=== PATIENT | male | born 1965 | race Caucasian/White ===

== ENCOUNTER 2017-08-25 00:59 | Emergency (ER) | payer SELFPAY ==
[~2017-08-25] VITALS: Ht 188 cm; Wt 91.7 kg
[2017-08-25 01:05] VITALS: BP 143/83
[2017-08-25] MEDS ORDERED: LISI-167 PO (01:14)
[2017-08-25] MEDS ORDERED: PROPARACAINE OPHTH 0.5%, 15ML ONE (01:18)
[2017-08-25] MEDS ORDERED: FLUORESCEIN OPHTHALMIC 1 MG STRIP ONE (01:18)
[2017-08-25] MEDS ORDERED: FLUORESCEIN OPHTHALMIC 1 MG STRIP EACHEYE ONE (02:00)
[2017-08-25] MEDS ORDERED: PROPARACAINE OPHTH 0.5%, 15ML EACHEYE ONE (02:00)
== END 2017-08-25 02:04 | disposition home or self-care (01) ==
LOC: ED 01:45
DX: T15.02XA Foreign body in cornea, left eye, initial encounter (principal); W31.1XXA Contact with metalworking machines, initial encounter; Y93.89 Activity, other specified; Y92.89 Other specified places as the place of occurrence of the external cause; Y99.8 Other external cause status
CPT/HCPCS: 65222; 99283

== ENCOUNTER 2020-08-05 11:44 | Emergency (ER) | payer OTHER ==
[~2020-08-05] VITALS: Ht 188 cm; Wt 90.7 kg
[~2020-08-05 11:44] MED LIST: LISI-167 PO
[2020-08-05 11:47] VITALS: BP 140/97
[2020-08-05] MEDS ORDERED: LIDOCAINE-MPF 1%, 5ML INFIL ONE (12:00)
[2020-08-05] MEDS ORDERED: LIDOCAINE-MPF 1%, 5ML ONE (12:18)
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
--- NOTE | 2020-08-05 12:47 | NUR ---
REPORT GIVEN TO LUISA DREW.
--- NOTE | 2020-08-05 12:54 | NUR ---
PROVIDER AT BEDSIDE FOR SUTURES.
[2020-08-05] MEDS ORDERED: NEOSPORIN OINT. PKT 1 PACKET ONE (12:57)
== END 2020-08-05 13:39 | disposition home or self-care (01) ==
LOC: ED 13:33
DX: S61.211A Laceration without foreign body of left index finger without damage to nail, initial encounter (principal); I10 Essential (primary) hypertension; E78.00 Pure hypercholesterolemia, unspecified; X58.XXXA Exposure to other specified factors, initial encounter; Y93.89 Activity, other specified; Y92.89 Other specified places as the place of occurrence of the external cause; Y99.0 Civilian activity done for income or pay
CPT/HCPCS: 12041; 12042; 99284